=== PATIENT | male | born 1985 | race African-American/Black ===

== ENCOUNTER 2017-10-14 00:57 | Emergency (ER) | payer OTHER ==
[~2017-10-14] VITALS: Ht 188 cm; Wt 90.7 kg
[2017-10-14 01:09] VITALS: BP 143/72
[2017-10-14] MEDS ORDERED: NORFLEX100 MG PO (02:27)
[2017-10-14] MEDS ORDERED: NAPROSYN500 MG PO (02:27)
== END 2017-10-14 02:43 | disposition home or self-care (01) ==
LOC: ER 00:57
DX: S29.012A Strain of muscle and tendon of back wall of thorax, initial encounter (principal); M43.6 Torticollis; I10 Essential (primary) hypertension; F17.210 Nicotine dependence, cigarettes, uncomplicated; X50.0XXA Overexertion from strenuous movement or load, initial encounter; Y93.89 Activity, other specified; Y92.89 Other specified places as the place of occurrence of the external cause; Y99.8 Other external cause status